=== PATIENT | female | born 1955 | race Caucasian/White ===

== ENCOUNTER → 2021-03-13 16:29 | Outpatient (CLI) | payer MEDICAID, SELFPAY ==
--- NOTE | 2021-02-21 11:10 | PCM.HP.BLA ---
History and Physical History and Physical [facility] Patient Name: Cassandra Rainey : 1955 From: JENIFFER BRADY PA-C DATE OF SURGERY: 03/13/2021 SCHEDULED PROCEDURE: right total hip arthroplasty HISTORY OF PRESENT ILLNESS: Preoperative history and physical exam was performed on February 20, 2021. This is a 65-year-old female who is having ongoing pain for over 3 years following a fall in bilateral hips. She does have a previous history of left total hip replacement at [facility] in [facility] by Dr. Roberts. Her pain at worst can reach 10/10 with activities. Pain is increased with going up and down stairs, driving. Her pain as being constant. She has difficulty with housework due to the pain. She has fallen secondary to the pain. Pain occasionally wakes her at night. She has pain over the lateral hip and anterior thigh on the left. She does have start up pain on the right hip. Patient has tried rest, walking for exercise, nonsteroidal anti-inflammatories, physical therapy for the left hip following a fall. She has used a walker for the past 5 months due to the right hip pain. She denies previous surgery on the right hip. She currently denies any chest pain, shortness of breath, fevers chills, recent infections. After failing conservative measures and discussing treatment options with Dr. Jimbo Dejesus, the patient does wish to proceed with a right total hip arthroplasty. 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 We are obtaining surgical clearance from patient's primary care physician Dr. Parikh. REVIEW OF SYSTEMS: ROS: Const: Denies change in appetite, fever and weight change. CV: Denies chest pain, heart murmur and irregular heartbeat. Resp: Denies cough, pneumonia, shortness of breath, tuberculosis and wheezing. GI: Denies constipation, diarrhea, heartburn, nausea, rectal itching, bloody stools and vomiting. : Denies incontinence. Musculo: Reports leg swelling and trouble walking, but denies pain and weakness. Skin: Denies Raynaud's, history of shingles and tattoo. Neuro: Denies ambulatory dysfunction, dizziness, numbness/tingling and tremor. Psych: Denies anxiety, insomnia and stress. Sae/Lymph: Denies anemia, bleeding/bruising tendency and past transfusion. Reviewed and updated. PAST MEDICAL HISTORY: Advance Care Plan: No Advance Directives Effective Date: 12/27/2020 PMH: Medical Problems: High Blood Pressure, Hypercholesterolemia, Sleep Apnea Accidents: None Surgical Hx: Hip Replacement Lt - 2018-[facility] Section - X2 Anesthesia Complications: None Assistive Devices: Glasses - READING, Dentures, Walker Reviewed, no changes. SOCIAL HISTORY: SH: Marital: .Occupation: Retired.Work Status: Retired.Hand Dominance: Right-handed. Personal Habits: Cigarette Use: Light tobacco smoker (10 or fewer cigarettes/day).Smokeless Tobacco: Never Used Smokeless Tobacco.E-Cigarette Use: Never used.Alcohol: Weekly use.Drug Use: Denies Use.Enjoy Exercising: Exercises 1-3 X/Week. Reviewed, no changes. VITALS: Ht: 65 Wt: 174lb Wt k.[id number] BMI: 29.0 BP: 126/82 Pulse: 104 Resp: 14 T: 97.4 T: 36.3C Pain Level: 6 ALLERGIES: No Known Drug Allergy MEDICATIONS: Lisinopril-Hydrochlorothiazide 20-25 mg 1 by mouth every day, Amlodipine Besylate 5 mg 1 by mouth every day, Atorvastatin Calcium 20 mg 1 by mouth every day, Folic Acid 1 mg 1 by mouth every day, Vitamin D2 2000 Unit 1po weekly, Ibuprofen 200 200 mg prn PRE-OP EXAM: General appearance:NORMAL Other: Eyes: Conjunctivae and lids: NORMAL Pupils: ERR Ears, Nose, Mouth, and Throat: NORMAL Other: Inspection of lips, teeth and gums: NORMAL Other: Neck: Examination of neck: no masses noted. Respiratory: Assessment of respiratory effort: NORMAL Other: Auscultation of lungs: clear to auscultation no wheezes, rhonchi or rales. Cardiovascular: Auscultation of heart: regular rate and rhythm, no murmurs, gallops or rubs. Exam of carotid arteries: NORMAL Other: Gastrointestinal: Exam of abdomen: soft, nontender, nondistended bowel sounds present. PHYSICAL EXAMINATION: Patient currently does use a walker and does have an antalgic gait. She has tenderness to palpation over bilateral greater trochanteric regions. It is worse on the right hip. Right hip is cool to touch without erythema or signs of infection. She does have a 10 flexion contracture on the right. Range of motion right hip flexion 65 with obligatory external rotation, internal rotation neutral, external rotation 25. Range of motion of the right hip increases her pain. Sensation intact to light touch. Neurovascularly intact. IMAGING STUDIES: X-rays of the right hip were obtained at today[facility] visit [facility] on [facility] 20, 2021 including AP pelvis, AP right hip, crossfire lateral right hip reveals severe narrowing of the right hip joint with subchondral sclerosis, osteophyte formation consistent with severe stage IV osteoarthritis. There is presence of a left total hip arthroplasty with stable components with a previous nonunion displaced greater trochanteric fracture. No acute findings for fracture or dislocation on the right hip. No lytic or blastic lesions. IMPRESSION: 1. Severe right hip osteoarthritis 2. Presence of left total hip arthroplasty 2018 3. Hypertension 4. Hypercholesterolemia 5. Sleep apnea PLAN: Dr. Jimbo Dejesus did discuss and review with the patient all treatment options including surgical versus nonsurgical options. Patient does wish to proceed with the above-stated procedure. Potential risks, benefits, and complications of the procedure were discussed in detail including but not limited to , infection, nerve and blood vessel damage, persistent pain, numbness, tingling, paresthesias, blood clot, pulmonary embolism, and requirement for possible further surgery. The patient expressed full understanding and has no further questions for the doctor. Patient does agree to proceed with the above-stated procedure and has signed the surgery consent form. We discussed the current risks associated with COVID 19. This does include the risk of exposure while in the hospital. Patient was reassured local hospitals have low infection rates and are taking all necessary precautions to avoid exposure to patients. In addition, we discussed strategies that can be used to help limit exposure including those that limit the patient's time in the hospital. Also using strategies to limit the patient's need for continued inpatient services after being discharged from the hospital. Patient was notified that we will need to comply with any screening or testing the hospital wishes to perform or that surgery may be delayed for any positive results. This dictation was created using voice recognition software. Phonetic and/or grammatical errors may exist. ___ I have re-examined the patient. There are no clinical changes since date of exam. ___ See progress notes for changes. ___ Dictated on admission Date: Time: Signature:
--- NOTE | 2021-03-13 07:29 | OP.PCM_ITS ---
Report of Operation Pre-Operative Diagnosis: Right hip primary osteoarthritis Post-Operative Diagnosis: Right hip primary osteoarthritis Surgery/Procedure Performed:: Right minimally invasive direct anterior total hip replacement Description of Surgical Findings:: Stable hip with equal leg length Surgeon: Jimbo Dejesus Type of Anesthesia: Spinal Special Medications: 2 g Ancef, 1 g TXA at incision, 1 g TXA closure, 10 mg Decadron, joint cocktail (5 mg Duramorph, 30 mL of 0.5% Ropivicaine, 1000 units of epinephrine, 30 mg of Toradol) Specimen's removed: Bony cuts Description of Procedure: Components used: 1. Accolade 2 Evin femoral stem size [] 127? 2. [place] trident 2 acetabular shell size [] mm 3. [place] X3 polyethylene [] 4. Evin Biolox delta []mm, []mm femoral head Brief history operative indications: [] yo [] who failed conservative measures for their hip osteoarthritis. X-rays were consistent with osteoarthritis including joint space narrowing, osteophyte formation and subchondral cysts. Total hip replacement was discussed with the patient with risks and benefits including but not limited to blood loss, DVTs, PEs, neurovascular damage, dislocation, general risks of anesthesia including loss of life. Patient demonstrated an understanding medical clearance is obtained the patient was consented for surgery. Procedure: On the date of procedure the patient's right hip was marked in the preoperative area. Patient was then taken back to the operating room where anesthesia a ssumed control of the C-spine and airway and administered anesthetic. Patient was transferred to the operating table and placed in the supine position. The hips were placed at the break of the bed and a sacral bump was placed. The right lower extremity was then prepped out in a sterile fashion using chlorhexidine while the surgeon scrubbed. The PA was vital in the positioning of the patient. Upon reentering the room the right lower extremity was draped in the standard orthopedic fashion and the incision was marked. A timeout was called and everyone agreed upon the side, the site, the procedure be performed, antibody given, and patient's identity. At this time incision was made through skin, subcutaneous tissue, and fat down to fascia. The fascia was then incised and the TFL was retracted laterally. A retractor was placed on the lateral border of the femoral neck. Attention was directed to the inferior portion of the approach and all crossing vessels were identified and appropriately coagulated. A retractor was then placed on the medial portion of the femoral neck. The anterior capsule was then cleared of all soft tissue and then H shaped capsulotomy was made. The retractors were then placed inside the capsule. The femoral neck was identified and a cleanup cut was made. At this time a power corkscrew was used to remove the femoral head. Attention was then turned toward the acetabulum where the soft tissues were appropriately retracted and the acetabulum was sequentially reamed to [] mm. A [] mm cup was then selected and impacted into place. Acetabular liner was impacted into place and locking mechanism was verified. The position of the acetabular cup was then verified under live fluoroscopy. Attention was then turned to the femur. Soft tissue releases on the medial and lateral femoral neck were appropriately done, the leg was externally rotated and lateralized. A Chavez retractor was placed medially and proximally to the greater trochanter this allowed appropriate visualization and exposure of the femoral canal. Rongeour was then used to remove excess lateral bone. A canal finder and entry broach were used to open the proximal canal. Once we verified we were down the femoral canal we subsequently broached up to a size [] femur. The appropriate neck was placed in the previously selected head was trialed with a [] mm neck. Traction was pulled and the hip was reduced with internal rotation. Once it was appropriately reduced and stability was checked. There was minimal shuck, equal leg lengths and appropriate stability with hype rextension and external rotation as well as with 90? flexion and internal rotation. Fluoroscopy was then also used to verify the position of the components and leg lengths using the contralateral side for comparison. The trial components were then dislocated the proximal femur was again exposed and the components were removed from the wound. The final components were verified and opened. The wound was copiously irrigated out with normal saline. The acetabulum was checked for any residual debris. The final components were placed and impacted. Traction and internal rotation were again used to reduce the hip. After adequate reduction the hip remained stable with appropriate leg lengths. The final components were once again checked with live fluoroscopy and were found to be satisfactory. The wound was then copiously irrigated with normal saline once more, and hemostasis was obtained. Closure was then done using #1 Vicryl runner to close the fascia. A 2-0 vicryl interuppted sutures were used to close the subcutaneous skin. A 3-0 Monocryl and Steri-Strips were used for final skin closure. A Silverlon dressing was placed. Patient was awakened by anesthesia and transferred to [facility]. Patient was then transferred to the PACU for recovery. Postoperative plan: Patient will get 24 hours postop antibiotics. Patient will get in-house physical therapy and will be weight-bear as tolerated. Patient will follow up in office in 2 weeks for a wound check and x-rays. Aspirin 81 mg twice daily. Complications No intraoperative complications Admit VTE Documentation VTE Present on Admission: No VTE Mechan Device Prophylaxis: SCD's and Thigh High LESLYE Hose VTE Pharm Prophylaxis ordered?: Yes
[2021-03-13 11:03] VITALS: BP 142/83; PULSE 99; TEMP 36.3; O2SAT 96; BMI 29.2
[2021-03-13 11:08] LABS: Anion Gap 7 (5-15); BUN 6 mg/dL (7-18); BUN/Creat Ratio 8.4 RATIO (10-20); Calcium,Total 8.9 mg/dL (8.5-10.1); Chloride 95 mmol/L (98-107); Creatinine, Serum 0.71 mg/dL (0.55-1.02); EST Glomerular Filtration Rate 88 mL/min (>60); Est Glom Filt Rate - Afr Amer 106 mL/min (>60); Estimated Creatinine Clearance 72.03 ml/min; Glucose 111 mg/dL (74-106); Magnesium 1.9 mg/dL (1.6-2.6); Potassium 3.7 mmol/L (3.5-5.1); Sodium Level 125 mmol/L (136-145)
[2021-03-13 11:11] LABS: Bedside Glucose 126 mg/dL (70-110)
--- NOTE | 2021-03-13 12:36 | SUR.PREOP ---
pt very upset about having to wait for the dr to talk with her. attempted to explain the concerns about her low sodium. she says she'll be fine and wants to just leave- this info given to anesthesia. he is trying to call her pcp emotional support given to pt. awaiting anesthesia to talk with pt
== END ==
LOC: AC 11:51 → PAT 04-09 16:29
PROVIDERS: Anesthesiology; Referring Provider Specialist; Visit Provider Specialist
DX: Z01.812 Encounter for preprocedural laboratory examination (principal); M16.11 Unilateral primary osteoarthritis, right hip; I10 Essential (primary) hypertension; E78.00 Pure hypercholesterolemia, unspecified; Z53.8 Procedure and treatment not carried out for other reasons
CPT/HCPCS: 80048; 82962; 83735; J7030; J7120